=== PATIENT | female | born 1965 | race Caucasian/White ===

== ENCOUNTER 2016-07-29 09:33 | Emergency (ER) | payer MEDICARE ==
[~2016-07-29] VITALS: Ht 162.5 cm; Wt 101.6 kg
[~2016-07-29 09:33] MED LIST: ACCU CHEK AVIVA SC; ACETAMINOHPEN/C1 TAB PO; ALAVERT10 M1 PO; ALBUTEROL1.25 MG/3 NEB; AMARYL2 MG PO; AMLODIPINE BESYL5 MG PO; AUGMENTIN 875 M1 TA1 PO; AUGMENTIN 875875 MG PO; BACTRIM DS 8001 TA1 PO; BACTROBAN CREAM15 GM T; CEFTIN500 M1 PO; CEPHALEXIN500 M1 PO; CHANTIX1 MG PO; COZAAR50 M1 PO; DIFLUCAN150 MG PO; DOXYCYCLINE100 M3 PO; FLEXERIL10 MG PO; FLEXERIL5 MG PO; FLOVENT 220 M220 MCG INH; GLUCOPHAGE500 MG PO; GLUCOTROL5 MG; GLUCOTROL5 MG PO; HYDROCODONE BIT1 T11 PO; IBU800 MG PO; K-Dur 20MEQ20 MEQ PO; KEFLEX500 M1 PO; KEFLEX500 MG PO; KEY-E400 IU PO; LISINOPRIL AND1 TA1 PO; LISINOPRIL/HCTZ1 TAB PO; LISINOPRIL10 MG PO; LOMOTIL 0.025 M1 TA1 PO; MEDROL DOSEPAK4 MG PO; METFOMIN HYDRO850 MG PO; METFORMIN1000 MG PO; METFORMIN500 MG PO; MICROZIDE12.5 MG PO; MOTRIN800 MG PO; MUCINEX600 MG PO; NAPROSYN500 MG PO; NATURE'S BL400 IU/ML PO; NATURE'S BLEND400 I1 PO; NICOTINE T21 MG/24 H TD; NORCO 5-325 TA1 EACH PO; Nicotrol 10MG I1 BOX INH; OFLOXACIN OTIC5 ML OT; PEN-VEE K500 MG PO; PERCOCET 325 MG1 TA2 PO; PHENERGAN W/DM120 ML PO; PREDNICOT20 MG PO; PREDNISONE20 MG PO; PREV ADMIT HOME MEDS; PRISTIQ50 MG PO; PROAIR HFA0.09 MG/AC IH; PROAIR HFA8.5 GM INH; SYNTHROID,LEV150 MCG PO; SYNTHROID0.175 MG PO; TESSALON PERLE200 MG PO; TRAMADOL HCL50 MG PO; ULTRAM50 MG PO; VANCOMYCIN250 MG/2.5 PO; VIBRAMYCIN100 MG PO; VICODIN 5/500 505 MG PO; VICODIN 500 MG-1 TAB PO; VITAMIN E100 I2; VOLTAREN50 M1 PO; ZITHROMAX250 MG PO; ZOFRAN ODT4 MG SL; ZOFRAN4 MG PO; ZOVIRAX800 MG PO; [UNRECOGNIZED DRUG - OTHER] SC; [UNRECOGNIZED DRUG - REMARK]
[2016-07-29] MEDS ORDERED: COZAAR100 MG PO (09:48)
[2016-07-29] MEDS ORDERED: SIMVASTATIN40 MG PO (09:49)
[2016-07-29] MEDS ORDERED: DIFLUCAN150 MG PO (10:10)
[2016-07-29] MEDS ORDERED: BACTROBAN CREAM15 GM PO (10:10)
[2016-07-29] MEDS ORDERED: CEPHALEXIN500 M1 PO (10:10)
[2016-07-29] MEDS ORDERED: FLAGYL500 MG PO (10:10)
[2016-07-29] MEDS ORDERED: HYDROCODONE BIT1 T11 PO (10:16)
== END 2016-07-29 10:22 | disposition home or self-care (01) ==
LOC: ED 09:33
DX: N61.0 Mastitis without abscess (principal); F17.200 Nicotine dependence, unspecified, uncomplicated; Z88.1 Allergy status to other antibiotic agents; Z88.6 Allergy status to analgesic agent; Z79.899 Other long term (current) drug therapy

== ENCOUNTER 2016-11-20 17:29 | Emergency (ER) | payer MEDICARE ==
[~2016-11-20] VITALS: Wt 99.8 kg
[~2016-11-20 17:29] MED LIST changes: +BACTROBAN CREAM15 GM PO; +COZAAR100 MG PO; +FLAGYL500 MG PO; +SIMVASTATIN40 MG PO
== END 2016-11-20 18:48 | disposition home or self-care (01) ==
LOC: ED 17:29
DX: M25.522 Pain in left elbow (principal); Z88.1 Allergy status to other antibiotic agents; Z79.899 Other long term (current) drug therapy

== ENCOUNTER 2016-12-30 17:14 | Emergency (ER) | payer MEDICARE ==
[~2016-12-30] VITALS: Ht 162.5 cm; Wt 99.8 kg
[2016-12-30 17:59] LABS: BILIRUBIN NEGATIVE (NEGATIVE); BLOOD NEGATIVE (NEGATIVE); CLARITY SL CLOUDY (CLEAR); COLOR YELLOW (YELLOW); GLUCOSE 3+ (NEGATIVE); KETONE NEGATIVE (NEGATIVE); LEUKO ESTERASE NEGATIVE (NEGATIVE); NITRITE NEGATIVE (NEGATIVE); PH 5.5 (5.0-9.0); PROTEIN NEGATIVE (NEGATIVE)
[2016-12-30 18:11] LABS: EPITHELIAL CELLS 0-2; RBC 0-2 rbc/hpf (0-2); URINE REFLEX COMMENT NO (NO); WBC 0-2 wbc/hpf (0-5)
[2016-12-30] MEDS ORDERED: HYDROCODONE BIT1 T11 PO (18:36)
== END 2016-12-30 18:39 | disposition home or self-care (01) ==
LOC: ED 17:14
PROVIDERS: Physician Assistant
DX: M54.42 Lumbago with sciatica, left side (principal); R35.0 Frequency of micturition; F17.200 Nicotine dependence, unspecified, uncomplicated; Z87.442 Personal history of urinary calculi; Z88.1 Allergy status to other antibiotic agents; Z88.8 Allergy status to other drugs, medicaments and biological substances; Z79.899 Other long term (current) drug therapy

== ENCOUNTER 2017-08-09 11:19 | Emergency (ER) | payer MEDICARE ==
[~2017-08-09] VITALS: Ht 162.5 cm; Wt 99.8 kg
[2017-08-09] MEDS ORDERED: JANUVIA100 MG PO (11:24)
[2017-08-09 11:52] LABS: BASO % 0.6 % (0.0-1.0); EOS # 0.1 10*3/uL (0.0-0.4); HEMATOCRIT 47.4 % (37.0-47.0); HEMOGLOBIN 15.8 g/dl (12.0-16.0); MEAN CELL VOLUME 89.6 fl (81.0-99.0); MEAN CORPUSCULAR HGB 29.9 pg (27.0-31.0); MEAN CORPUSCULAR HGB CONC 33.3 g/dl (33.0-37.0); MEAN PLATELET VOLUME 12.4 fl (9.6-12.3); MONO # 0.5 10*3/uL (0.1-1.0); MONO % 7.1 % (3.0-9.0); NEUT # 4.4 10*3/uL (2.3-7.9); NEUT % 62.6 % (47.0-73.0); PLATELET COUNT AUTOMATED 133 10*3/uL (130-400); RED BLOOD COUNT 5.29 10*6/uL (4.10-5.10); RED CELL DISTRI WIDTH 13.2 % (0-14.5); WHITE BLOOD COUNT 7.1 10*3/uL (4.8-10.8)
[2017-08-09 11:54] LABS: BILIRUBIN 1+ (NEGATIVE); BLOOD NEGATIVE (NEGATIVE); CLARITY SL CLOUDY (CLEAR); COLOR YELLOW (YELLOW); GLUCOSE NEGATIVE (NEGATIVE); KETONE NEGATIVE (NEGATIVE); LEUKO ESTERASE NEGATIVE (NEGATIVE); NITRITE NEGATIVE (NEGATIVE); PH 5.5 (5.0-9.0); SPECIFIC GRAVITY >= 1.030 (1.005-1.030)
[2017-08-09 12:05] LABS: BACTERIA 1+; MUCOUS 4+; RBC 0-2 rbc/hpf (0-2)
[2017-08-09 12:07] LABS: ALBUMIN 3.1 gm/dl (3.1-4.5); BUN 9 mg/dl (7-24); CHLORIDE 104 mmol/L (98-107); CREATININE 0.84 mg/dL (0.55-1.02); POTASSIUM 3.7 mmol/L (3.5-5.1); SGOT/AST 113 IU/L (3-35); SGPT/ALT 140 U/L (12-78); SODIUM 140 mmol/L (136-145); TOTAL PROTEIN 6.9 gm/dL (6.4-8.2)
[2017-08-09 12:09] LABS: ALKALINE PHOSPHATASE 151 U/L (45-117)
[2017-08-09] MEDS ORDERED: Zofran4 MG SL (12:20)
== END 2017-08-09 12:26 | disposition home or self-care (01) ==
LOC: ED 11:19
PROVIDERS: Student in an Organized Health Care Education/Training Program
DX: R11.2 Nausea with vomiting, unspecified (principal); R19.7 Diarrhea, unspecified; R50.9 Fever, unspecified; I10 Essential (primary) hypertension; J45.909 Unspecified asthma, uncomplicated; E11.9 Type 2 diabetes mellitus without complications; E66.01 Morbid (severe) obesity due to excess calories; F17.200 Nicotine dependence, unspecified, uncomplicated; Z68.39 Body mass index [BMI] 39.0-39.9, adult; Z88.1 Allergy status to other antibiotic agents; Z79.899 Other long term (current) drug therapy

== ENCOUNTER 2017-10-02 12:56 | Emergency (ER) | payer OTHER, MEDICARE ==
[~2017-10-02] VITALS: Ht 162.5 cm; Wt 88.9 kg
[~2017-10-02 12:56] MED LIST changes: +JANUVIA100 MG PO; +Zofran4 MG SL
[2017-10-02] MEDS ORDERED: Motrin,Rufen800 MG PO (14:56)
== END 2017-10-02 15:05 | disposition home or self-care (01) ==
LOC: ED 12:56
DX: S39.012A Strain of muscle, fascia and tendon of lower back, initial encounter (principal); F17.200 Nicotine dependence, unspecified, uncomplicated; J45.909 Unspecified asthma, uncomplicated; I10 Essential (primary) hypertension; E66.9 Obesity, unspecified; E03.9 Hypothyroidism, unspecified; Z68.39 Body mass index [BMI] 39.0-39.9, adult; Z98.890 Other specified postprocedural states; Z98.51 Tubal ligation status; Z90.710 Acquired absence of both cervix and uterus; Z90.89 Acquired absence of other organs; Z96.652 Presence of left artificial knee joint; Z79.899 Other long term (current) drug therapy; Z88.1 Allergy status to other antibiotic agents; Z88.8 Allergy status to other drugs, medicaments and biological substances; X50.1XXA Overexertion from prolonged static or awkward postures, initial encounter; Y93.89 Activity, other specified; Y92.69 Other specified industrial and construction area as the place of occurrence of the external cause; Y99.9 Unspecified external cause status

== ENCOUNTER 2017-10-11 18:41 | Inpatient (IN) | payer MEDICARE ==
[~2017-10-11] VITALS: Ht 162.6 cm; Wt 95.5 kg
[~2017-10-11 18:41] MED LIST changes: +Motrin,Rufen800 MG PO
[2017-10-11 18:51] VITALS: BP 191/80
[2017-10-11 19:37] LABS: BASO % 0.4 % (0.0-1.0); EOS # 0.1 10*3/uL (0.0-0.4); EOS % 0.7 % (1.0-4.0); HEMATOCRIT 53.8 % (37.0-47.0); HEMOGLOBIN 18.1 g/dl (12.0-16.0); LYMPH # 1.9 10*3/uL (1.3-4.4); LYMPH % 17.9 % (27.0-41.0); MEAN CELL VOLUME 87.2 fl (81.0-99.0); MEAN CORPUSCULAR HGB 29.3 pg (27.0-31.0); MEAN CORPUSCULAR HGB CONC 33.6 g/dl (33.0-37.0); MEAN PLATELET VOLUME 12.1 fl (9.6-12.3); MONO # 0.4 10*3/uL (0.1-1.0); MONO % 3.7 % (3.0-9.0); PLATELET COUNT AUTOMATED 151 10*3/uL (130-400); RED BLOOD COUNT 6.17 10*6/uL (4.10-5.10); RED CELL DISTRI WIDTH 13.7 % (0-14.5); WHITE BLOOD COUNT 10.3 10*3/uL (4.8-10.8)
[2017-10-11 19:59] LABS: ALKALINE PHOSPHATASE 152 U/L (45-117); BUN 17 mg/dl (7-24); CHLORIDE 95 mmol/L (98-107); CREATININE 1.11 mg/dL (0.55-1.02); LIPASE 214 U/L (73-393); POTASSIUM 3.8 mmol/L (3.5-5.1); SGOT/AST 193 IU/L (3-35); SGPT/ALT 149 U/L (12-78); SODIUM 135 mmol/L (136-145); TOTAL PROTEIN 8.3 gm/dL (6.4-8.2)
[2017-10-11 20:00] VITALS: BP 175/90
[2017-10-11 20:55] VITALS: BP 180/100
[2017-10-12] VITALS (9 sets, daily range): BP systolic 120–213; BP diastolic 70–112
[2017-10-12 05:53] LABS: BASO % 0.4 % (0.0-1.0); EOS % 0.4 % (1.0-4.0); HEMATOCRIT 48.4 % (37.0-47.0); HEMOGLOBIN 16.2 g/dl (12.0-16.0); LYMPH # 1.9 10*3/uL (1.3-4.4); LYMPH % 20.6 % (27.0-41.0); MEAN CELL VOLUME 87.4 fl (81.0-99.0); MEAN CORPUSCULAR HGB 29.2 pg (27.0-31.0); MEAN CORPUSCULAR HGB CONC 33.5 g/dl (33.0-37.0); MEAN PLATELET VOLUME 12.1 fl (9.6-12.3); MONO # 0.3 10*3/uL (0.1-1.0); MONO % 3.4 % (3.0-9.0); NEUT % 74.8 % (47.0-73.0); PLATELET COUNT AUTOMATED 157 10*3/uL (130-400); RED BLOOD COUNT 5.54 10*6/uL (4.10-5.10); RED CELL DISTRI WIDTH 13.5 % (0-14.5); WHITE BLOOD COUNT 9.4 10*3/uL (4.8-10.8)
[2017-10-12 06:31] LABS: ALBUMIN 3.3 gm/dl (3.1-4.5); ALKALINE PHOSPHATASE 121 U/L (45-117); BUN 14 mg/dl (7-24); CHLORIDE 98 mmol/L (98-107); CHOLESTEROL 369 mg/dL (<200); CREATININE 0.84 mg/dL (0.55-1.02); HDL CHOLESTEROL 28 mg/dl (40-60); LDL CHOLESTEROL 283 mg/dL (9-159); PHOSPHOROUS 2.2 mg/dL (2.5-4.9); POTASSIUM 3.5 mmol/L (3.5-5.1); SGPT/ALT 114 U/L (12-78); SODIUM 134 mmol/L (136-145); TRIGLYCERIDES 292 mg/dl (<150); VLDL CHOLESTEROL 58 mg/dL (6-40)
[2017-10-12 06:36] LABS: FREE T4 0.17 ng/dl (0.76-1.46); SGOT/AST 118 IU/L (3-35); TOTAL PROTEIN 6.8 gm/dL (6.4-8.2)
[2017-10-12 07:10] LABS: VITAMIN D, 25-HYDROXY 5.5 ng/mL (30-100)
[2017-10-13] VITALS: BP 141/72
[2017-10-13 06:22] LABS: BASO # 0.1 10*3/uL (0.0-0.1); BASO % 0.6 % (0.0-1.0); EOS # 0.2 10*3/uL (0.0-0.4); EOS % 1.8 % (1.0-4.0); HEMATOCRIT 48.4 % (37.0-47.0); HEMOGLOBIN 15.9 g/dl (12.0-16.0); LYMPH # 2.6 10*3/uL (1.3-4.4); MEAN CORPUSCULAR HGB 28.9 pg (27.0-31.0); MEAN CORPUSCULAR HGB CONC 32.9 g/dl (33.0-37.0); MEAN PLATELET VOLUME 11.6 fl (9.6-12.3); MONO # 0.5 10*3/uL (0.1-1.0); MONO % 5.1 % (3.0-9.0); NEUT # 5.6 10*3/uL (2.3-7.9); NEUT % 63.2 % (47.0-73.0); PLATELET COUNT AUTOMATED 142 10*3/uL (130-400); RED CELL DISTRI WIDTH 13.7 % (0-14.5); WHITE BLOOD COUNT 8.8 10*3/uL (4.8-10.8)
[2017-10-13 06:24] LABS: ALBUMIN 3.1 gm/dl (3.1-4.5); BUN 13 mg/dl (7-24); CHLORIDE 105 mmol/L (98-107); CREATININE 1.05 mg/dL (0.55-1.02); POTASSIUM 3.5 mmol/L (3.5-5.1); SGOT/AST 113 IU/L (3-35); SGPT/ALT 113 U/L (12-78); SODIUM 141 mmol/L (136-145); TOTAL PROTEIN 6.5 gm/dL (6.4-8.2)
[2017-10-13 06:25] LABS: ALKALINE PHOSPHATASE 115 U/L (45-117)
[2017-10-13 08:00] VITALS: BP 129/58; BP 147/75
[2017-10-13 09:00] VITALS: BP 147/75
[2017-10-13] MEDS ORDERED: PROAIR HFA8.5 GM INH (09:21)
[2017-10-13] MEDS ORDERED: Synthroid,Lev150 MCG PO (09:21)
[2017-10-13] MEDS ORDERED: COZAAR100 MG PO (09:21)
[2017-10-13] MEDS ORDERED: VITAMIN D350000 UNIT PO (09:24)
[2017-10-13] MEDS ORDERED: LANTUS SOL100 UNIT/1 SQ (09:24)
[2017-10-13] MEDS ORDERED: Insulin Lispro SC (09:24)
[2017-10-13] MEDS ORDERED: FLAGYL500 MG PO (09:27)
[2017-10-13 12:00] VITALS: BP 128/64
== END 2017-10-13 12:59 | disposition home or self-care (01) | DRG 391 ==
LOC: ED 18:41 → EDHOLD 20:19 → 4E 20:19
PROVIDERS: Internal Medicine; Nurse Practitioner Family
DX: K52.9 Noninfective gastroenteritis and colitis, unspecified (principal); N17.0 Acute kidney failure with tubular necrosis; E87.1 Hypo-osmolality and hyponatremia; D75.1 Secondary polycythemia; E11.65 Type 2 diabetes mellitus with hyperglycemia; I16.1 Hypertensive emergency; K76.0 Fatty (change of) liver, not elsewhere classified; E55.9 Vitamin D deficiency, unspecified; E66.9 Obesity, unspecified; E78.5 Hyperlipidemia, unspecified; I10 Essential (primary) hypertension; K57.90 Diverticulosis of intestine, part unspecified, without perforation or abscess without bleeding; E03.9 Hypothyroidism, unspecified; Z96.659 Presence of unspecified artificial knee joint; E87.8 Other disorders of electrolyte and fluid balance, not elsewhere classified; R51 Headache; E86.0 Dehydration; R74.0 Nonspecific elevation of levels of transaminase and lactic acid dehydrogenase [LDH]; J45.909 Unspecified asthma, uncomplicated; Z72.0 Tobacco use; Z71.6 Tobacco abuse counseling; Z98.51 Tubal ligation status; Z90.710 Acquired absence of both cervix and uterus; Z90.49 Acquired absence of other specified parts of digestive tract; Z82.49 Family history of ischemic heart disease and other diseases of the circulatory system; Z82.3 Family history of stroke; Z88.8 Allergy status to other drugs, medicaments and biological substances; Z79.899 Other long term (current) drug therapy; Z87.440 Personal history of urinary (tract) infections; Z83.3 Family history of diabetes mellitus; Z80.9 Family history of malignant neoplasm, unspecified; Z68.36 Body mass index [BMI] 36.0-36.9, adult

== ENCOUNTER 2017-10-20 19:09 | Emergency (ER) | payer MEDICARE ==
[~2017-10-20] VITALS: Ht 162.5 cm; Wt 90.7 kg
[~2017-10-20 19:09] MED LIST changes: +Insulin Lispro SC; +LANTUS SOL100 UNIT/1 SQ; +Synthroid,Lev150 MCG PO; +VITAMIN D350000 UNIT PO
[2017-10-20 19:48] LABS: BASO # 0.1 10*3/uL (0.0-0.1); BASO % 0.7 % (0.0-1.0); EOS # 0.1 10*3/uL (0.0-0.4); EOS % 1.4 % (1.0-4.0); HEMATOCRIT 45.9 % (37.0-47.0); HEMOGLOBIN 15.4 g/dl (12.0-16.0); LYMPH # 1.7 10*3/uL (1.3-4.4); LYMPH % 19.1 % (27.0-41.0); MEAN CORPUSCULAR HGB 28.8 pg (27.0-31.0); MEAN CORPUSCULAR HGB CONC 33.6 g/dl (33.0-37.0); MEAN PLATELET VOLUME 11.6 fl (9.6-12.3); MONO # 0.4 10*3/uL (0.1-1.0); MONO % 4.8 % (3.0-9.0); NEUT # 6.7 10*3/uL (2.3-7.9); NEUT % 73.6 % (47.0-73.0); PLATELET COUNT AUTOMATED 163 10*3/uL (130-400); RED BLOOD COUNT 5.34 10*6/uL (4.10-5.10); RED CELL DISTRI WIDTH 13.9 % (0-14.5)
[2017-10-20 19:58] LABS: BILIRUBIN NEGATIVE (NEGATIVE); BLOOD TRACE-LYSED (NEGATIVE); CLARITY CLEAR (CLEAR); COLOR YELLOW (YELLOW); GLUCOSE 3+ (NEGATIVE); KETONE NEGATIVE (NEGATIVE); LEUKO ESTERASE NEGATIVE (NEGATIVE); NITRITE NEGATIVE (NEGATIVE); PH 6.5 (5.0-9.0); SPECIFIC GRAVITY <= 1.005 (1.005-1.030); UROBILINOGEN 0.2 E.U./dl (0.2-1.0)
[2017-10-20 20:04] LABS: ALBUMIN 3.5 gm/dl (3.1-4.5); ALKALINE PHOSPHATASE 127 U/L (45-117); BUN 10 mg/dl (7-24); CHLORIDE 99 mmol/L (98-107); CREATININE 0.82 mg/dL (0.55-1.02); POTASSIUM 3.5 mmol/L (3.5-5.1); SGOT/AST 105 IU/L (3-35); SGPT/ALT 115 U/L (12-78); SODIUM 137 mmol/L (136-145); TOTAL PROTEIN 7.1 gm/dL (6.4-8.2); TROPONIN I 0.017 ng/ml (<0.045)
[2017-10-20 20:04] LABS: EPITHELIAL CELLS 0-2; WBC 0-2 wbc/hpf (0-5)
[2017-10-20 20:06] LABS: URINE AMPHETAMINES < 1000 (1000ng/ml); URINE BARBITURATES < 200 (200ng/ml); URINE BENZODIAZEPINES < 200 (200ng/ml); URINE CANNABINOIDS (THC) < 50 (50ng/ml); URINE COCAINE < 300 (300ng/ml); URINE METHADONE < 300 (300ng/ml); URINE OPIATES < 300 (300ng/ml); URINE PHENCYCLIDINE < 25 (25ng/ml)
[2017-10-20 21:01] LABS: ACT PARTIAL THROMBO TIME 24.4 SECONDS (20.8-31.5); INTERNATIONAL NORM RATIO 1.1 (2.0-3.5)
== END 2017-10-20 22:04 | disposition short-term general hospital (02) ==
LOC: ED 19:09
PROVIDERS: Student in an Organized Health Care Education/Training Program
DX: I60.9 Nontraumatic subarachnoid hemorrhage, unspecified (principal); F17.200 Nicotine dependence, unspecified, uncomplicated; E11.9 Type 2 diabetes mellitus without complications; I10 Essential (primary) hypertension; E78.5 Hyperlipidemia, unspecified; E78.00 Pure hypercholesterolemia, unspecified; E03.9 Hypothyroidism, unspecified; E66.01 Morbid (severe) obesity due to excess calories; Z68.39 Body mass index [BMI] 39.0-39.9, adult; Z79.899 Other long term (current) drug therapy; Z79.4 Long term (current) use of insulin; Z88.1 Allergy status to other antibiotic agents; Z90.710 Acquired absence of both cervix and uterus; Z90.89 Acquired absence of other organs; Z98.890 Other specified postprocedural states; Z88.8 Allergy status to other drugs, medicaments and biological substances

== ENCOUNTER 2017-10-30 16:49 | Emergency (ER) | payer MEDICARE ==
[~2017-10-30] VITALS: Ht 162.5 cm; Wt 87.1 kg
[2017-10-30 18:45] LABS: BASO # 0.1 10*3/uL (0.0-0.1); BASO % 0.7 % (0.0-1.0); EOS # 0.2 10*3/uL (0.0-0.4); EOS % 2.2 % (1.0-4.0); HEMATOCRIT 44.7 % (37.0-47.0); HEMOGLOBIN 14.9 g/dl (12.0-16.0); LYMPH % 26.8 % (27.0-41.0); MEAN CELL VOLUME 87.8 fl (81.0-99.0); MEAN CORPUSCULAR HGB 29.3 pg (27.0-31.0); MEAN CORPUSCULAR HGB CONC 33.3 g/dl (33.0-37.0); MEAN PLATELET VOLUME 12.4 fl (9.6-12.3); MONO # 0.4 10*3/uL (0.1-1.0); MONO % 5.5 % (3.0-9.0); NEUT # 4.7 10*3/uL (2.3-7.9); NEUT % 64.4 % (47.0-73.0); PLATELET COUNT AUTOMATED 144 10*3/uL (130-400); RED BLOOD COUNT 5.09 10*6/uL (4.10-5.10); RED CELL DISTRI WIDTH 13.8 % (0-14.5); WHITE BLOOD COUNT 7.3 10*3/uL (4.8-10.8)
[2017-10-30 19:02] LABS: ALBUMIN 3.4 gm/dl (3.1-4.5); ALKALINE PHOSPHATASE 118 U/L (45-117); BUN 6 mg/dl (7-24); CHLORIDE 103 mmol/L (98-107); CREATININE 0.81 mg/dL (0.55-1.02); POTASSIUM 3.4 mmol/L (3.5-5.1); SGOT/AST 60 IU/L (3-35); SGPT/ALT 75 U/L (12-78); SODIUM 140 mmol/L (136-145); TOTAL PROTEIN 7.1 gm/dL (6.4-8.2)
[2017-10-30] MEDS ORDERED: KEPPRA1000 MG PO (19:42)
[2017-10-30] MEDS ORDERED: JANUVIA25 MG PO (19:42)
[2017-10-30] MEDS ORDERED: LOPRESSOR25 MG PO (21:46)
[2017-10-30] MEDS ORDERED: ATIVAN0.5 MG PO (21:47)
== END 2017-10-30 21:57 | disposition home or self-care (01) ==
LOC: ED 16:49
PROVIDERS: Emergency Medicine
DX: F41.1 Generalized anxiety disorder (principal); F17.200 Nicotine dependence, unspecified, uncomplicated; J45.909 Unspecified asthma, uncomplicated; E11.9 Type 2 diabetes mellitus without complications; I10 Essential (primary) hypertension; E78.5 Hyperlipidemia, unspecified; E78.00 Pure hypercholesterolemia, unspecified; E03.9 Hypothyroidism, unspecified; E66.01 Morbid (severe) obesity due to excess calories; Z68.39 Body mass index [BMI] 39.0-39.9, adult; Z90.710 Acquired absence of both cervix and uterus; Z90.49 Acquired absence of other specified parts of digestive tract; Z98.890 Other specified postprocedural states; Z88.1 Allergy status to other antibiotic agents; Z79.4 Long term (current) use of insulin; Z79.899 Other long term (current) drug therapy

== ENCOUNTER 2017-11-12 08:51 | Emergency (ER) | payer MEDICARE ==
[~2017-11-12] VITALS: Ht 162.5 cm; Wt 87.1 kg
[~2017-11-12 08:51] MED LIST changes: +ATIVAN0.5 MG PO; +JANUVIA25 MG PO; +KEPPRA1000 MG PO; +LOPRESSOR25 MG PO
[2017-11-12 09:29] LABS: BASO % 0.4 % (0.0-1.0); EOS # 0.1 10*3/uL (0.0-0.4); EOS % 1.7 % (1.0-4.0); HEMATOCRIT 43.5 % (37.0-47.0); HEMOGLOBIN 14.8 g/dl (12.0-16.0); LYMPH # 1.7 10*3/uL (1.3-4.4); LYMPH % 24.9 % (27.0-41.0); MEAN CELL VOLUME 86.3 fl (81.0-99.0); MEAN CORPUSCULAR HGB 29.4 pg (27.0-31.0); MONO # 0.4 10*3/uL (0.1-1.0); MONO % 5.6 % (3.0-9.0); NEUT # 4.6 10*3/uL (2.3-7.9); NEUT % 67.1 % (47.0-73.0); PLATELET COUNT AUTOMATED 148 10*3/uL (130-400); RED BLOOD COUNT 5.04 10*6/uL (4.10-5.10); RED CELL DISTRI WIDTH 13.5 % (0-14.5); WHITE BLOOD COUNT 6.9 10*3/uL (4.8-10.8)
[2017-11-12 09:38] LABS: INTERNATIONAL NORM RATIO 1.1 (2.0-3.5)
[2017-11-12 09:45] LABS: ALBUMIN 3.5 gm/dl (3.1-4.5); ALKALINE PHOSPHATASE 136 U/L (45-117); BUN 7 mg/dl (7-24); CHLORIDE 104 mmol/L (98-107); CREATININE 0.76 mg/dL (0.55-1.02); POTASSIUM 3.8 mmol/L (3.5-5.1); SGOT/AST 39 IU/L (3-35); SGPT/ALT 55 U/L (12-78); SODIUM 142 mmol/L (136-145); TOTAL PROTEIN 7.2 gm/dL (6.4-8.2)
[2017-11-12 10:05] LABS: BILIRUBIN NEGATIVE (NEGATIVE); BLOOD NEGATIVE (NEGATIVE); CLARITY SL CLOUDY (CLEAR); COLOR YELLOW (YELLOW); GLUCOSE NEGATIVE (NEGATIVE); KETONE NEGATIVE (NEGATIVE); LEUKO ESTERASE NEGATIVE (NEGATIVE); NITRITE NEGATIVE (NEGATIVE); PH 5.5 (5.0-9.0); UROBILINOGEN 0.2 E.U./dl (0.2-1.0)
[2017-11-12] MEDS ORDERED: REGLAN10 M1 PO (12:50)
[2017-11-12] MEDS ORDERED: Fioricet 325 MG1 TAB PO (12:51)
== END 2017-11-12 12:56 | disposition home or self-care (01) ==
LOC: ED 08:51
PROVIDERS: Nurse Practitioner
DX: G43.909 Migraine, unspecified, not intractable, without status migrainosus (principal); Z98.890 Other specified postprocedural states; Z98.51 Tubal ligation status; Z90.49 Acquired absence of other specified parts of digestive tract; Z90.710 Acquired absence of both cervix and uterus; Z79.899 Other long term (current) drug therapy; Z88.1 Allergy status to other antibiotic agents; Z88.8 Allergy status to other drugs, medicaments and biological substances

== ENCOUNTER 2017-12-22 15:50 | Emergency (ER) | payer MEDICARE ==
[~2017-12-22] VITALS: Ht 162.5 cm; Wt 87.1 kg
[~2017-12-22 15:50] MED LIST changes: +Fioricet 325 MG1 TAB PO; +REGLAN10 M1 PO
[2017-12-22 16:37] LABS: BASO % 0.4 % (0.0-1.0); EOS # 0.2 10*3/uL (0.0-0.4); EOS % 2.2 % (1.0-4.0); HEMATOCRIT 42.3 % (37.0-47.0); HEMOGLOBIN 14.2 g/dl (12.0-16.0); LYMPH # 2.6 10*3/uL (1.3-4.4); LYMPH % 35.3 % (27.0-41.0); MEAN CELL VOLUME 85.8 fl (81.0-99.0); MEAN CORPUSCULAR HGB 28.8 pg (27.0-31.0); MEAN CORPUSCULAR HGB CONC 33.6 g/dl (33.0-37.0); MEAN PLATELET VOLUME 11.6 fl (9.6-12.3); MONO # 0.5 10*3/uL (0.1-1.0); MONO % 6.3 % (3.0-9.0); NEUT # 4.1 10*3/uL (2.3-7.9); NEUT % 55.5 % (47.0-73.0); PLATELET COUNT AUTOMATED 130 10*3/uL (130-400); RED BLOOD COUNT 4.93 10*6/uL (4.10-5.10); WHITE BLOOD COUNT 7.4 10*3/uL (4.8-10.8)
[2017-12-22 16:45] LABS: ACT PARTIAL THROMBO TIME 25.7 SECONDS (20.8-31.5)
[2017-12-22 16:49] LABS: CREATININE 1.19 mg/dL (0.55-1.02); POTASSIUM 4.2 mmol/L (3.5-5.1)
== END 2017-12-22 17:53 ==
LOC: ED 15:50
PROVIDERS: Emergency Medicine
DX: G43.909 Migraine, unspecified, not intractable, without status migrainosus (principal); E11.9 Type 2 diabetes mellitus without complications; I10 Essential (primary) hypertension; E78.5 Hyperlipidemia, unspecified; E03.9 Hypothyroidism, unspecified; E66.01 Morbid (severe) obesity due to excess calories; Z88.1 Allergy status to other antibiotic agents; Z79.899 Other long term (current) drug therapy; Z68.39 Body mass index [BMI] 39.0-39.9, adult

== ENCOUNTER → 2018-04-16 | Outpatient (CLI) | payer MEDICARE ==
[~2018-04-16] MED LIST changes: +HUMALOG100 UNIT/1 SQ; +KEPPRA500 MG PO
== END | disposition home or self-care (01) ==
LOC: MRI 08:36
DX: G93.89 Other specified disorders of brain (principal); R56.9 Unspecified convulsions; Z95.5 Presence of coronary angioplasty implant and graft

== ENCOUNTER 2019-04-09 19:38 | Emergency (ER) | payer MEDICARE ==
[~2019-04-09] VITALS: Ht 162.5 cm; Wt 83.9 kg
[~2019-04-09 19:38] MED LIST changes: +ASPIR LOW81 MG PO; +BRILINTA90 M1 PO; +LIPITOR40 MG PO; +METOPROLOL SUC100 M1 PO; +NATURE'S BLEND F1 MG PO; +NORVASC5 MG PO; +PANTOPRAZOLE SO40 MG PO; +PREDNISONE50 MG PO; +VITAMIN D5000 UNI1 PO
[2019-04-09 20:46] LABS: BASO # 0.1 10*3/uL (0.0-0.1); BASO % 0.6 % (0.0-1.0); EOS # 0.2 10*3/uL (0.0-0.4); EOS % 2.5 % (1.0-4.0); HEMATOCRIT 44.7 % (37.0-47.0); HEMOGLOBIN 14.9 g/dl (12.0-16.0); LYMPH # 2.5 10*3/uL (1.3-4.4); LYMPH % 30.5 % (27.0-41.0); MEAN CELL VOLUME 90.3 fl (81.0-99.0); MEAN CORPUSCULAR HGB 30.1 pg (27.0-31.0); MEAN CORPUSCULAR HGB CONC 33.3 g/dl (33.0-37.0); MEAN PLATELET VOLUME 12.3 fl (9.6-12.3); MONO # 0.4 10*3/uL (0.1-1.0); MONO % 4.9 % (3.0-9.0); NEUT # 5.1 10*3/uL (2.3-7.9); NEUT % 60.9 % (47.0-73.0); PLATELET COUNT AUTOMATED 157 10*3/uL (130-400); RED BLOOD COUNT 4.95 10*6/uL (4.10-5.10); RED CELL DISTRI WIDTH 14.3 % (0-14.5); WHITE BLOOD COUNT 8.3 10*3/uL (4.8-10.8)
[2019-04-09 21:05] LABS: ALBUMIN 3.5 gm/dl (3.1-4.5); CREATININE 1.31 mg/dL (0.55-1.02); POTASSIUM 3.9 mmol/L (3.5-5.1); TOTAL PROTEIN 7.4 gm/dL (6.4-8.2)
[2019-04-09] MEDS ORDERED: DOXYCYCLINE100 M3 PO (21:14)
[2019-04-09] MEDS ORDERED: PROVENTIL HFA6.7 GM INH (21:14)
[2019-04-09] MEDS ORDERED: TESSALON PERLE100 M1 PO (21:14)
[2019-04-09] MEDS ORDERED: PREDNISONE20 M1 PO (21:14)
[2019-04-09] MEDS ORDERED: OMNICEF300 MG PO (22:00)
== END 2019-04-09 22:10 | disposition home or self-care (01) ==
LOC: ED 19:38
PROVIDERS: Physician Assistant
DX: J45.909 Unspecified asthma, uncomplicated (principal); H66.92 Otitis media, unspecified, left ear; E11.65 Type 2 diabetes mellitus with hyperglycemia; I10 Essential (primary) hypertension; E03.9 Hypothyroidism, unspecified; F17.200 Nicotine dependence, unspecified, uncomplicated; Z88.1 Allergy status to other antibiotic agents; Z79.899 Other long term (current) drug therapy; Z79.82 Long term (current) use of aspirin

== ENCOUNTER 2019-08-15 17:38 | Emergency (ER) | payer OTHER ==
[~2019-08-15] VITALS: Ht 162.5 cm; Wt 101.6 kg
[~2019-08-15 17:38] MED LIST changes: +OMNICEF300 MG PO; +PREDNISONE20 M1 PO; +PROVENTIL HFA6.7 GM INH; +TESSALON PERLE100 M1 PO
[2019-08-15] MEDS ORDERED: ZOFRAN4 MG PO (18:57)
== END 2019-08-15 19:09 | disposition home or self-care (01) ==
LOC: ED 17:38
DX: B34.9 Viral infection, unspecified (principal); R19.7 Diarrhea, unspecified; I10 Essential (primary) hypertension; J45.909 Unspecified asthma, uncomplicated; E11.9 Type 2 diabetes mellitus without complications; E03.9 Hypothyroidism, unspecified; I25.2 Old myocardial infarction; F17.200 Nicotine dependence, unspecified, uncomplicated; Z88.8 Allergy status to other drugs, medicaments and biological substances; Z79.899 Other long term (current) drug therapy; Z79.2 Long term (current) use of antibiotics; Z79.82 Long term (current) use of aspirin; Z98.61 Coronary angioplasty status; Z90.710 Acquired absence of both cervix and uterus; Z90.49 Acquired absence of other specified parts of digestive tract

== ENCOUNTER → 2021-06-15 | Outpatient (CLI) | payer OTHER | END | disposition home or self-care (01) | LOC: COVID19 16:33 | PROVIDERS: ATTEND Podiatrist Foot & Ankle Surgery | DX: Z11.52 Encounter for screening for COVID-19 (principal) ==

== ENCOUNTER 2022-03-15 18:08 | Emergency (ER) | payer OTHER ==
[2022-03-15 19:21] LABS: BASO % 0.6 % (0.0-1.0); EOS % 0.4 % (1.0-4.0); HEMATOCRIT 37.8 % (37.0-47.0); LYMPH # 0.8 10*3/uL (1.3-4.4); LYMPH % 11.3 % (27.0-41.0); MEAN CELL VOLUME 87.3 fl (81.0-99.0); MEAN CORPUSCULAR HGB 28.6 pg (27.0-31.0); MEAN CORPUSCULAR HGB CONC 32.8 g/dl (33.0-37.0); MEAN PLATELET VOLUME 11.6 fl (9.6-12.3); MONO # 0.6 10*3/uL (0.1-1.0); MONO % 8.9 % (3.0-9.0); NEUT # 5.6 10*3/uL (2.3-7.9); NEUT % 78.7 % (47.0-73.0); PLATELET COUNT AUTOMATED 165 10*3/uL (130-400); RED BLOOD COUNT 4.33 10*6/uL (4.10-5.10); RED CELL DISTRI WIDTH 13.4 % (0-14.5); WHITE BLOOD COUNT 7.1 10*3/uL (4.8-10.8)
[2022-03-15 19:36] LABS: ALKALINE PHOSPHATASE 121 U/L (45-117); BUN 13 mg/dl (7-24); CHLORIDE 102 mmol/L (98-107); CREATININE 0.75 mg/dL (0.55-1.02); SGOT/AST 23 IU/L (3-35); SGPT/ALT 51 U/L (12-78); SODIUM 135 mmol/L (136-145); TOTAL PROTEIN 6.9 gm/dL (6.4-8.2)
[2022-03-15 19:53] LABS: INTERNATIONAL NORM RATIO 1.1 (2.0-3.5)
[2022-03-15 22:11] LABS: BILIRUBIN Negative (Negative); BLOOD 1+ (Negative); CLARITY Cloudy (Clear); COLOR Yellow (Yellow); GLUCOSE 3+ (Negative); KETONE 1+ (Negative); LEUKO ESTERASE Negative (Negative); NITRITE Negative (Negative); PH 5.5 (4.5-8.0); SPECIFIC GRAVITY >= 1.030 (1.001-1.030); UROBILINOGEN 0.2 E.U./dl (0.0-1.0)
[2022-03-15 22:23] LABS: BACTERIA 2+; RBC 16-20 rbc/hpf (0-2); YEAST 1+
[2022-03-16] MEDS ORDERED: HYDROCODONE-AC1 EAC1 PO (03:44)
[2022-03-18] MEDS ORDERED: AMOX-CLAV 875-1 EACH PO (20:04)
== END 2022-03-16 03:59 | disposition home or self-care (01) ==
LOC: ED 18:08
PROVIDERS: Physician Assistant
DX: S39.012A Strain of muscle, fascia and tendon of lower back, initial encounter (principal); M51.36 Other intervertebral disc degeneration, lumbar region; Z88.1 Allergy status to other antibiotic agents; Z79.899 Other long term (current) drug therapy; Z79.82 Long term (current) use of aspirin; Z90.710 Acquired absence of both cervix and uterus; Z98.51 Tubal ligation status; Z98.890 Other specified postprocedural states; Z87.891 Personal history of nicotine dependence; W18.39XA Other fall on same level, initial encounter; Y93.89 Activity, other specified; Y92.89 Other specified places as the place of occurrence of the external cause; Y99.8 Other external cause status

== ENCOUNTER 2022-06-09 17:32 | Emergency (ER) | payer MEDICARE, OTHER ==
[~2022-06-09] VITALS: Ht 162.5 cm; Wt 63.5 kg
[~2022-06-09 17:32] MED LIST changes: +24 HOUR ALLER15.8 ML NAS; +AMOX-CLAV 875-1 EACH PO; +Carafate1 GM PO; +DOCUSATE SOD100 MG PO; +EFFEXOR XR75 M1 PO; +FLOMAX0.4 MG PO; +GOOD SENSE ASP325 MG PO; +HYDROCODONE-AC1 EAC1 PO; +INSULIN LI100 UNIT/2 SQ; +JARDIANCE10 MG PO; +LANTUS SOL100 UNIT/1 SC; +LEVOTHYROXINE125 MCG PO; +LEVOTHYROXINE200 MC2 PO; +LEXAPRO10 MG PO; +METHOCARBAMOL750 M1 PO; +REGLAN5 MG PO; +SEPTDS PO; +VITAMIN D250 MC1 PO
== END 2022-06-09 22:00 | disposition short-term general hospital (02) ==
LOC: ED 17:32
DX: S42.032A Displaced fracture of lateral end of left clavicle, initial encounter for closed fracture (principal); I61.3 Nontraumatic intracerebral hemorrhage in brain stem; Z87.891 Personal history of nicotine dependence; Z90.49 Acquired absence of other specified parts of digestive tract; Z79.899 Other long term (current) drug therapy; Z88.1 Allergy status to other antibiotic agents; W05.0XXA Fall from non-moving wheelchair, initial encounter; Y93.89 Activity, other specified; Y92.89 Other specified places as the place of occurrence of the external cause; Y99.9 Unspecified external cause status

== ENCOUNTER → 2024-01-06 | Outpatient (CLI) | payer OTHER | END | disposition home or self-care (01) | LOC: LAB 12:57 | PROVIDERS: ATTEND Internal Medicine | DX: E11.9 Type 2 diabetes mellitus without complications (principal) ==